=== PATIENT | female | born 1945 | race American Indian/Alaskan Native ===

== ENCOUNTER 2017-08-02 13:13 | Emergency (ER) | payer MEDICARE, MEDICAID ==
--- NOTE | 2017-08-02 12:33 | EDM.PDOC ---
ED HPI GENERAL MEDICAL PROBLEM - General Chief Complaint: General Stated Complaint: IN BY AMBULANCE Time Seen by Provider: 08/02/17 12:30 Source of Information: Reports: Patient, EMS, EMS Notes Reviewed History Limitations: Reports: No Limitations - History of Present Illness INITIAL COMMENTS - FREE TEXT/NARRATIVE: 71 yo [place] Female was at [employer] and developed trouble breathing from cig. smoke. Also, patient states she did not take her insulin because she was hurring to catch bus for [employer]. PMHx. COPD stopped smoking 2 yrs ago and PMHx. Diabetes requiring insulin. Onset: Today Onset Date: 08/02/17 Onset Time: 10:00 Duration: Hour(s):, Improving Location: Reports: Chest, Other (elevated BS) Severity: Moderate Improves with: Reports: Other (getting out of smoke environment) Worsens with: Reports: Other (smoke environment) Associated Symptoms: Reports: No Other Symptoms - Related Data Allergies Allergy/AdvReac Type Severity Reaction Status Date / Time glyburide Allergy Shortness Verified 08/02/17 12:39 of Breath insulin aspart Allergy Itching Verified 08/02/17 13:32 [From Novolog Mix 70-30] insulin aspart protamine Allergy Itching Verified 08/02/17 13:32 human [From Novolog Mix 70-30] nystatin Allergy Rash Verified 08/02/17 12:39 tramadol Allergy Shortness Verified 08/02/17 12:39 of Breath Home Meds: Home Meds Acetaminophen with Codeine [Tylenol with Codeine #3 Tablet] 1 tab PO Q4H [History] Albuterol [Proventil Neb Soln] 1 vial INH Q4H PRN 09/05/15 [History] Aspirin [Halfprin] 1 tab PO DAILY 09/05/15 [History] Budesonide [Pulmicort] 1 vial INH BID 09/05/15 [History] Formoterol [Perforomist] 1 vial INH BID 09/05/15 [History] Gabapentin [Neurontin] 1 cap PO BEDTIME 09/05/15 [History] Insulin Detemir [Levemir] 60 units INJECT BEDTIME 09/05/15 [History] Insulin Regular, Human [HumuLIN R] 10 units INJECT Q8HR PRN 09/05/15 [History] Naproxen [Naprosyn] 1 tab PO BIDMEALS 09/05/15 [History] Omeprazole [Prilosec] 1 cap PO BID 09/05/15 [History] Polyvinyl Alcohol [Artificial Tears] 1 drop EYEBOTH QID 09/05/15 [History] Pregabalin [Lyrica] 1 cap PO DAILY 09/05/15 [History] Simvastatin [Zocor] 1 tab PO BEDTIME 09/05/15 [History] Tiotropium [Spiriva HandiHaler] 1 cap INH DAILY 09/05/15 [History] amLODIPine [Norvasc] 1 tab PO DAILY 09/05/15 [History] metFORMIN [Glucophage] 1 tab PO BIDMEALS 09/05/15 [History] Past Medical History Other Cardiovascular History: PERIPHERAL EDEMA Other Gastrointestinal History: PERSISTENT HEARTBURN Other OB/BYN History: YEAST INFECTIONS Other Immunologic History: MIGUEL POSITIVE ; PT STATES SHE COULD HAVE BEEN EXPOSED TO HIV OR AIDS WHEN SHE LIVED IN [place] IN THE PAST - TESTED NEGATIVE FOR HIV Other Dermatologic History: SMALL RED RAISED AREA ON LEFT PALM SIZE OF QUARTER - SAYS IT WAS OPEN, BUT NOW IS CLOSED; PT STATES SHE HAS "DIABETIC SORES" ON HER LOWER EXTREMETIES AND BACK - NONE ARE OPEN AT THIS TIME - Past Surgical History Other HEENT Surgeries/Procedures: BILAT CATARACT EXTRACTION Social & Family History - Tobacco Use Smoking Status *Q: Former Smoker Years of Tobacco use: 20 Month Tobacco Last Used: 01/10/2015 Second Hand Smoke Exposure: Yes - Alcohol Use Days Per Week of Alcohol Use: 0 - Recreational Drug Use Recreational Drug Use: No Drug Use in Last 12 Months: No - Living Situation & Occupation Occupation: Retired ED ROS GENERAL - Review of Systems Review Of Systems: See Below Constitutional: Reports: No Symptoms HEENT: Reports: No Symptoms Respiratory: Reports: Shortness of Breath Cardiovascular: Reports: No Symptoms Endocrine: Reports: High Glucose (525 by EMS) GI/Abdominal: Reports: No Symptoms : Reports: No Symptoms Musculoskeletal: Reports: No Symptoms Skin: Reports: No Symptoms Neurological: Reports: No Symptoms Psychiatric: Reports: No Symptoms Hematologic/Lymphatic: Reports: No Symptoms Immunologic: Reports: No Symptoms ED EXAM, GENERAL - Physical Exam Exam: See Below Exam Limited By: No Limitations General Appearance: Alert, No Apparent Distress, Obese Eye Exam: Bilateral Eye: PERRL Ears: Normal External Exam Nose: Normal Inspection Throat/Mouth: Normal Inspection, Normal Lips Head: Atraumatic, Normocephalic Neck: Normal Inspection Respiratory/Chest: No Respiratory Distress, Lungs Clear, Normal Breath Sounds, No Accessory Muscle Use, Chest Non-Tender Cardiovascular: Normal Peripheral Pulses, Regular Rate, Rhythm, No Edema Peripheral Pulses: 2+: Radial (L), Radial (R) GI/Abdominal: Normal Bowel Sounds, Soft Back Exam: Normal Inspection Extremities: Normal Inspection, Normal Range of Motion, Non-Tender Neurological: Alert, Oriented, CN II-XII Intact, Normal Cognition Psychiatric: Normal Affect, Normal Mood Skin Exam: Warm, Dry, Intact, Normal Color Lymphatic: No Adenopathy Course - Vital Signs Last Recorded V/S: Last Vital Signs Temp 35.9 C 08/02/17 16:07 Pulse 88 08/02/17 16:07 Resp 14 08/02/17 16:07 BP 138/62 08/02/17 16:07 Pulse Ox 93 L 08/02/17 16:07 - Orders/Labs/Meds Orders: Active Orders 24 hr Category Date Time Status OSMOLALITY - URINE Stat Lab 08/02/17 12:49 Received Labs: Laboratory Tests 08/02/17 08/02/17 08/02/17 Range/Units 12:44 12:44 12:49 WBC 10.6 H (5.0-10.0) 10^3/uL RBC 4.58 (4.2-5.4) 10^6/uL Hgb 12.0 D (12.0-16.0) g/dL Hct 37.0 (37.0-47.0) % MCV 80.8 D (80-100) fL MCH 26.2 L (27.0-34.0) pg MCHC 32.4 L (33.0-35.0) g/dL Plt Count 216 (150-450) 10^3/uL Neut % (Auto) 76.4 H (42.2-75.2) % Lymph % (Auto) 17.0 L (20.5-50.1) % [place] % (Auto) 4.2 (2-8) % Eos % (Auto) 2.1 (1.0-3.0) % Baso % (Auto) 0.3 (0.0-1.0) % Sodium 129 L (135-145) mmol/L Potassium 4.2 (3.6-5.0) mmol/L Chloride 96 L (101-111) mmol/L Carbon Dioxide 22.0 (21.0-31.0) mmol/L Anion Gap 15.2 BUN 20 H (7-18) mg/dL Creatinine 1.1 (0.6-1.3) mg/dL Est Cr Clr Drug Dosing 38.18 mL/min Estimated GFR (MDRD) 49 BUN/Creatinine Ratio 18.18 Glucose 573 H* (74-105) mg/dL POC Glucose (70-105) mg/dl Calcium 8.3 L (8.4-10.2) mg/dl Total Bilirubin 0.4 (0.2-1.0) mg/dL AST 16 (10-42) IU/L ALT 11 (10-60) IU/L Alkaline Phosphatase 113 (42-121) IU/L Total Protein 7.3 (6.7-8.2) g/dl Albumin 3.1 L (3.2-5.5) g/dl Globulin 4.2 Albumin/Globulin Ratio 0.74 Urine Color Yellow (YELLOW) Urine Appearance Slightly cloudy (CLEAR) Urine pH 5.5 (5.0-9.0) Ur Specific [place] 1.010 (1.005-1.030) Urine Protein 100 H (NEGATIVE) Urine Glucose (UA) 500 H (NEGATIVE) Urine Ketones Negative (NEGATIVE) Urine Occult Blood Trace-lysed H (NEGATIVE) Urine Nitrite Negative (NEGATIVE) Urine Bilirubin Negative (NEGATIVE) Urine Urobilinogen 0.2 (0.2-1.0) mg/dL Ur Leukocyte Esterase Negative (NEGATIVE) Urine RBC 0-5 /HPF Urine WBC 0-5 (0-5/HPF) /HPF Ur Epithelial Cells Moderate H /HPF Urine Bacteria Moderate H (0-FEW/HPF) /HPF 08/02/17 08/02/17 Range/Units 14:51 15:57 WBC (5.0-10.0) 10^3/uL RBC (4.2-5.4) 10^6/uL Hgb (12.0-16.0) g/dL Hct (37.0-47.0) % MCV (80-100) fL MCH (27.0-34.0) pg MCHC (33.0-35.0) g/dL Plt Count (150-450) 10^3/uL Neut % (Auto) (42.2-75.2) % Lymph % (Auto) (20.5-50.1) % [place] % (Auto) (2-8) % Eos % (Auto) (1.0-3.0) % Baso % (Auto) (0.0-1.0) % Sodium (135-145) mmol/L Potassium (3.6-5.0) mmol/L Chloride (101-111) mmol/L Carbon Dioxide (21.0-31.0) mmol/L Anion Gap BUN (7-18) mg/dL Creatinine (0.6-1.3) mg/dL Est Cr Clr Drug Dosing mL/min Estimated GFR (MDRD) BUN/Creatinine Ratio Glucose (74-105) mg/dL POC Glucose 382 H 319 H (70-105) mg/dl Calcium (8.4-10.2) mg/dl Total Bilirubin (0.2-1.0) mg/dL AST (10-42) IU/L ALT (10-60) IU/L Alkaline Phosphatase (42-121) IU/L Total Protein (6.7-8.2) g/dl Albumin (3.2-5.5) g/dl Globulin Albumin/Globulin Ratio Urine Color (YELLOW) Urine Appearance (CLEAR) Urine pH (5.0-9.0) Ur Specific [place] (1.005-1.030) Urine Protein (NEGATIVE) Urine Glucose (UA) (NEGATIVE) Urine Ketones (NEGATIVE) Urine Occult Blood (NEGATIVE) Urine Nitrite (NEGATIVE) Urine Bilirubin (NEGATIVE) Urine Urobilinogen (0.2-1.0) mg/dL Ur Leukocyte Esterase (NEGATIVE) Urine RBC /HPF Urine WBC (0-5/HPF) /HPF Ur Epithelial Cells /HPF Urine Bacteria (0-FEW/HPF) /HPF Meds: Medications Discontinued Medications Generic Name Dose Route Start Last Admin Trade Name Freq PRN Reason Stop Dose Admin Sodium Chloride 1,000 mls @ 999 mls/hr 08/02/17 12:32 08/02/17 13:03 Normal Saline IV 08/02/17 13:32 999 mls/hr .BOLUS ONE Administration Sodium Chloride 1,000 mls @ 999 mls/hr 08/02/17 14:59 08/02/17 15:06 Normal Saline IV 08/02/17 15:59 999 mls/hr .BOLUS ONE Administration Insulin Human Regular 10 unit 08/02/17 13:23 08/02/17 13:44 Humulin R IV 08/02/17 13:24 10 units ONETIME ONE Administration Protocol Insulin Human Regular 7 unit 08/02/17 15:58 08/02/17 16:01 Humulin R IV 08/02/17 15:59 7 unit ONETIME ONE Administration Protocol Departure - Departure Time of Disposition: 16:26 Disposition: Home, Self-Care 01 Condition: Good Clinical Impression: Acute bronchospasm Hyperglycemia due to type 2 diabetes mellitus Qualifiers: Diabetes mellitus rat exterminator insulin use: with skilled nursing use Qualified Code(s): E11.65 - Type 2 diabetes mellitus with hyperglycemia; Z79.4 - retirement (current ) use of insulin; Z79.4 - superintendent terminal (current) use of insulin; Z79.4 - retirement (current) use of insulin; Z79.4 - superintendent terminal (current) use of insulin - Discharge Information Forms: ED Department Discharge Additional Instructions: Take your Medication as prescribed by your Doctor Follow dietary instructions per your Doctor Stay Away from Cigarette Smoke F/U w/ PCP - My Orders Last 24 Hours: My Active Orders 08/02/17 12:49 OSMOLALITY - URINE Stat - Assessment/Plan Last 24 Hours: My Active Orders 08/02/17 12:49 OSMOLALITY - URINE Stat
--- NOTE | 2017-08-02 13:08 | CR ---
CLINICAL HISTORY: 71-year-old female with shortness of breath (past medical history COPD). INTERPRETATION: Chronic shaggy interstitial pattern and some old lower lobe atelectasis or bronchiect asis right base unchanged since 12 January 2015 exam this patient with generalized mild air trapping. Senescent ectasia of the dorsal aorta. No atelectasis/collapse. No pneumothorax. Normal cardiac silhouette without cephalization of flow, signs of alveolar edema or dependent pleural effusion. CONCLUSION: Abnormal but no acute new cardiopulmonary abnormality when compared to January 2015 exam.
[~2017-08-02 13:13] MED LIST: Sodium Chloride 0.9% 1,000 ML IV ONE
[2017-08-02] MEDS ORDERED: Insulin Regular, Human 100 Units/ML 3 ML Vial IV ONE ×2 (13:23→15:58)
[2017-08-02] MEDS ORDERED: Sodium Chloride 0.9% 1,000 ML IV ONE (14:59)
[2017-08-02 16:08] VITALS: BP 138/62
== END 2017-08-02 16:46 | disposition home or self-care (01) ==
LOC: DL.ED 13:13
DX: J98.01 Acute bronchospasm (principal); E11.65 Type 2 diabetes mellitus with hyperglycemia; Z79.4 Long term (current) use of insulin; Z87.891 Personal history of nicotine dependence; Z79.899 Other long term (current) drug therapy; Z88.5 Allergy status to narcotic agent; Z88.8 Allergy status to other drugs, medicaments and biological substances; Z79.82 Long term (current) use of aspirin
CPT/HCPCS: 36415; 71020; 80053; 81001; 82962; 83935; 85025; 96361; 96374; 96376; 99285; J1815; J7030

== ENCOUNTER 2018-01-19 15:56 | Emergency (ER) | payer MEDICARE, MEDICAID ==
[2018-01-19] MEDS ORDERED: Sodium Chloride 0.9% 10 ML Syringe FLUSH PRN (16:08)
[2018-01-19 17:02] LABS: ANION GAP 16.2
[2018-01-19] MEDS ORDERED: Insulin Regular, Human 100 Units/ML 3 ML Vial IV ONE (17:09)
--- NOTE | 2018-01-19 17:39 | EDM.PDOC ---
ED HPI GENERAL MEDICAL PROBLEM - General Chief Complaint: Neuro Symptoms/Deficits Stated Complaint: TIA STROKE Time Seen by Provider: 01/19/18 16:15 Source of Information: Reports: Patient, EMS, EMS Notes Reviewed, Family, RN, RN Notes Reviewed History Limitations: Reports: No Limitations - History of Present Illness INITIAL COMMENTS - FREE TEXT/NARRATIVE: Pt presents to the ER per [facility] with c/o numbness and tingling to the left side of her face, left arm, and left leg. She states the areas feel as if they are asleep. Pt states yesterday morning she had facial drooping and was unable to hold her saliva in her mouth. Pt states that resolved this morning, and she began with the numbness and tingling. Daughter states that there has not been any slurring of speech, but the patient has used words inappropriately. Patient admits to DMII, and recently being started on meds for HTN. Patient denies any further health problems at this time. Onset: Gradual Onset Date: 01/18/18 - Related Data Allergies Allergy/AdvReac Type Severity Reaction Status Date / Time glyburide Allergy Shortness Verified 08/02/17 12:39 of Breath insulin aspart Allergy Itching Verified 01/19/18 17:54 [From Novolog Mix 70-30] insulin aspart protamine Allergy Itching Verified 01/19/18 17:54 human [From Novolog Mix 70-30] nystatin Allergy Rash Verified 08/02/17 12:39 tramadol Allergy Shortness Verified 08/02/17 12:39 of Breath Home Meds: Home Meds Acetaminophen with Codeine [Tylenol with Codeine #3 Tablet] 1 tab PO Q4H PRN 12/16 [History] Albuterol [Proventil Neb Soln] 1 vial INH Q4H PRN 09/05/15 [History] Aspirin [Halfprin] 1 tab PO DAILY 09/05/15 [History] Polyvinyl Alcohol [Artificial Tears] 1 drop EYEBOTH QID PRN 09/05/15 [History] Pregabalin [Lyrica] 150 mg PO DAILY 09/05/15 [History] metFORMIN [Glucophage] 1 tab PO BIDMEALS 09/05/15 [History] Albuterol [Proair HFA] 2 puff INH Q4H PRN 01/19/18 [History] Famotidine 1 tab PO DAILY 01/19/18 [History] Insulin Aspart [NovoLOG] 55 units SQ TID 01/19/18 [History] Insulin Detemir [Levemir Flextouch] 80 units SQ BID 01/19/18 [History] Loratadine 1 tab PO DAILY 01/19/18 [History] Losartan [Cozaar] 1 tab PO DAILY 01/19/18 [History] Saxagliptin HCl [Onglyza] 1 tab PO DAILY 01/19/18 [History] atorvaSTATin [Lipitor] 1 tab PO BEDTIME 01/19/18 [History] Past Medical History HEENT History: Reports: Impaired Vision Cardiovascular History: Reports: High Cholesterol, Hypertension, Other (See Below) Other Cardiovascular History: PERIPHERAL EDEMA Respiratory History: Reports: COPD Gastrointestinal History: Reports: Other (See Below) Other Gastrointestinal History: PERSISTENT HEARTBURN Genitourinary History: Reports: Diabetic Nephropathy CLINICAL SUPPORT ASSOCIATE History: Reports: Other (See Below) Other OB/BYN History: YEAST INFECTIONS Neurological History: Reports: Neuropathy, Diabetic Endocrine/Metabolic History: Reports: Diabetes, Type II Immunologic History: Reports: Other (See Below) Other Immunologic History: MIGUEL POSITIVE ; PT STATES SHE COULD HAVE BEEN EXPOSED TO HIV OR AIDS WHEN SHE LIVED IN [place] IN THE PAST - TESTED NEGATIVE FOR HIV Dermatologic History: Reports: Other (See Below) Other Dermatologic History: SMALL RED RAISED AREA ON LEFT PALM SIZE OF QUARTER - SAYS IT WAS OPEN, BUT NOW IS CLOSED; PT STATES SHE HAS "DIABETIC SORES" ON HER LOWER EXTREMETIES AND BACK - NONE ARE OPEN AT THIS TIME - Past Surgical History HEENT Surgical History: Reports: Other (See Below) Other HEENT Surgeries/Procedures: BILAT CATARACT EXTRACTION Female Surgical History: Reports: Section Musculoskeletal Surgical History: Reports: Other (See Below) Other Musculoskeletal Surgeries/Procedures:: both great toes have been amputated Social & Family History - Tobacco Use Smoking Status *Q: Former Smoker Years of Tobacco use: 20 Used Tobacco, but Quit: Yes Month/Year Tobacco Last Used: 01/10/2015 Second Hand Smoke Exposure: Yes - Caffeine Use Caffeine Use: Reports: Coffee, Soda - Alcohol Use Days Per Week of Alcohol Use: 0 - Recreational Drug Use Recreational Drug Use: No Drug Use in Last 12 Months: No - Living Situation & Occupation Occupation: Retired ED ROS GENERAL - Review of Systems Review Of Systems: ROS reveals no pertinent complaints other than HPI. ED EXAM, NEURO - Physical Exam Exam: See Below Exam Limited By: No Limitations General Appearance: Alert, WD/WN, No Apparent Distress Eye Exam: Bilateral Eye: EOMI, Normal Inspection, PERRL (4 brisk) Ears: Normal External Exam, Hearing Grossly Normal Nose: Normal Inspection Throat/Mouth: Normal Inspection, Normal Voice, No Airway Compromise Head Exam: Atraumatic, Normocephalic Neck: Normal Inspection, Supple, Non-Tender, Full Range of Motion Respiratory/Chest: No Respiratory Distress, Lungs Clear, Normal Breath Sounds, No Accessory Muscle Use, Chest Non-Tender Cardiovascular: Normal Peripheral Pulses, Regular Rate, Rhythm, No Gallop, No JVD, No Murmur, No Rub GI/Abdominal: Normal Bowel Sounds, Soft, Non-Tender, No Organomegaly, No Distention, No Abnormal Bruit, No Mass (Female) Exam: Deferred Rectal (Female) Exam: Deferred Neurological: Alert, Normal Mood/Affect, Normal Dorsiflexion, Normal Plantar Flexion, Oriented x 3, Abnormal Sensation, Difficulty Walking. No: Withdraws to Pain, Abnormal Finger to Nose, Abnormal Light Touch, Abnormal Pin Prick, Abn 2 Pt Discrimination, Babinski, Tremor, Straight Leg Raise (L), Straight Leg Raise (R) Back Exam: Normal Inspection, Full Range of Motion Extremities: Normal Inspection, Normal Capillary Refill, Pedal Edema (+1-2) Psychiatric: Normal Affect, Normal Mood Skin Exam: Warm, Dry, Intact, Normal Color, No Rash EKG INTERPRETATION EKG Date: 01/19/18 Time: 16:08 Rhythm: NSR Rate (Beats/Min): 93 Comparison: No Change Course - Vital Signs Last Recorded V/S: Last Vital Signs Temp 97.9 F 01/19/18 15:57 Pulse 103 H 01/19/18 15:57 Resp 22 H 01/19/18 15:57 BP Pulse Ox 90 L 01/19/18 15:57 - Orders/Labs/Meds Orders: Active Orders 24 hr Category Date Time Status Peripheral IV Care [RC] . DIRECTED Care 01/19/18 16:08 Active UA W/MICROSCOPIC [URIN] Stat Lab 01/19/18 16:45 Ordered Sodium Chloride 0.9% [Saline Flush] Med 01/19/18 16:08 Active 10 ml FLUSH ASDIRECTED PRN Peripheral IV Insertion Adult [OM.PC] Stat Oth 01/19/18 16:08 Ordered Medication Orders Sodium Chloride (Saline Flush) 10 ml FLUSH ASDIRECTED PRN PRN Reason: Keep Vein Open Last Admin: 01/19/18 17:00 Dose: 10 ml Labs: Laboratory Tests 01/19/18 01/19/18 01/19/18 Range/Units 16:18 16:18 16:18 WBC 8.2 (5.0-10.0) 10^3/uL RBC 4.70 (4.2-5.4) 10^6/uL Hgb 12.5 (12.0-16.0) g/dL Hct 38.4 (37.0-47.0) % MCV 81.7 (80-100) fL MCH 26.6 L (27.0-34.0) pg MCHC 32.6 L (33.0-35.0) g/dL Plt Count 191 (150-450) 10^3/uL Neut % (Auto) 73.4 (42.2-75.2) % Lymph % (Auto) 17.5 L (20.5-50.1) % [place] % (Auto) 6.5 (2-8) % Eos % (Auto) 2.4 (1.0-3.0) % Baso % (Auto) 0.2 (0.0-1.0) % PT 8.8 L (9.0-12.0) SEC INR 0.9 (0.9-1.2) Sodium 128 L (135-145) mmol/L Potassium 5.2 H (3.6-5.0) mmol/L Chloride 96 L (101-111) mmol/L Carbon Dioxide 21.0 (21.0-31.0) mmol/L Anion Gap 16.2 BUN 33 H (7-18) mg/dL Creatinine 1.8 H (0.6-1.3) mg/dL Est Cr Clr Drug Dosing 24.06 mL/min Estimated GFR (MDRD) 28 BUN/Creatinine Ratio 18.33 Glucose 521 H* (74-105) mg/dL Calcium 8.2 L (8.4-10.2) mg/dl Total Bilirubin 0.4 (0.2-1.0) mg/dL AST 30 (10-42) IU/L ALT 19 (10-60) IU/L Alkaline Phosphatase 87 (42-121) IU/L Total Protein 6.6 L (6.7-8.2) g/dl Albumin 2.9 L (3.2-5.5) g/dl Globulin 3.7 Albumin/Globulin Ratio 0.78 Urine Color (YELLOW) Urine Appearance (CLEAR) Urine pH (5.0-9.0) Ur Specific [place] (1.005-1.030) Urine Protein (NEGATIVE) Urine Glucose (UA) (NEGATIVE) Urine Ketones (NEGATIVE) Urine Occult Blood (NEGATIVE) Urine Nitrite (NEGATIVE) Urine Bilirubin (NEGATIVE) Urine Urobilinogen (0.2-1.0) mg/dL Ur Leukocyte Esterase (NEGATIVE) Urine RBC /HPF Urine WBC (0-5/HPF) /HPF Ur Epithelial Cells /HPF Calcium Oxalate Crystal /HPF Amorphous Sediment (0/HPF) /HPF Urine Bacteria (0-FEW/HPF) /HPF Fine Granular Casts (0/LPF) /LPF 01/19/18 Range/Units 16:45 WBC (5.0-10.0) 10^3/uL RBC (4.2-5.4) 10^6/uL Hgb (12.0-16.0) g/dL Hct (37.0-47.0) % MCV (80-100) fL MCH (27.0-34.0) pg MCHC (33.0-35.0) g/dL Plt Count (150-450) 10^3/uL Neut % (Auto) (42.2-75.2) % Lymph % (Auto) (20.5-50.1) % [place] % (Auto) (2-8) % Eos % (Auto) (1.0-3.0) % Baso % (Auto) (0.0-1.0) % PT (9.0-12.0) SEC INR (0.9-1.2) Sodium (135-145) mmol/L Potassium (3.6-5.0) mmol/L Chloride (101-111) mmol/L Carbon Dioxide (21.0-31.0) mmol/L Anion Gap BUN (7-18) mg/dL Creatinine (0.6-1.3) mg/dL Est Cr Clr Drug Dosing mL/min Estimated GFR (MDRD) BUN/Creatinine Ratio Glucose (74-105) mg/dL Calcium (8.4-10.2) mg/dl Total Bilirubin (0.2-1.0) mg/dL AST (10-42) IU/L ALT (10-60) IU/L Alkaline Phosphatase (42-121) IU/L Total Protein (6.7-8.2) g/dl Albumin (3.2-5.5) g/dl Globulin Albumin/Globulin Ratio Urine Color Yellow (YELLOW) Urine Appearance Slightly cloudy (CLEAR) Urine pH 5.5 (5.0-9.0) Ur Specific [place] 1.020 (1.005-1.030) Urine Protein >=300 H (NEGATIVE) Urine Glucose (UA) 500 H (NEGATIVE) Urine Ketones Negative (NEGATIVE) Urine Occult Blood Trace-lysed H (NEGATIVE) Urine Nitrite Negative (NEGATIVE) Urine Bilirubin Negative (NEGATIVE) Urine Urobilinogen 0.2 (0.2-1.0) mg/dL Ur Leukocyte Esterase Negative (NEGATIVE) Urine RBC 0-5 /HPF Urine WBC 0-5 (0-5/HPF) /HPF Ur Epithelial Cells Few /HPF Calcium Oxalate Crystal Rare /HPF Amorphous Sediment Rare (0/HPF) /HPF Urine Bacteria Moderate H (0-FEW/HPF) /HPF Fine Granular Casts Rare H (0/LPF) /LPF Meds: Medications Generic Name Dose Route Start Last Admin Trade Name Freq PRN Reason Stop Dose Admin Sodium Chloride 10 ml 01/19/18 16:08 01/19/18 17:00 Saline Flush FLUSH 10 ml ASDIRECTED PRN Administration Keep Vein Open Discontinued Medications Generic Name Dose Route Start Last Admin Trade Name Freq PRN Reason Stop Dose Admin Famotidine 20 mg 01/19/18 17:56 01/19/18 18:11 Pepcid PO 01/19/18 17:57 20 mg ONETIME ONE Administration Insulin Human Regular 30 unit 01/19/18 17:09 01/19/18 17:24 Humulin R IV 01/19/18 17:10 30 units ONETIME ONE Administration Ondansetron HCl 4 mg 01/19/18 17:56 01/19/18 18:09 Zofran Odt PO 01/19/18 17:57 4 mg ONETIME ONE Administration - Radiology Interpretation Free Text/Narrative:: Head CT without contrast: THIS REPORT CONTAINS FINDINGS THAT MAY BE CRITICAL TO PATIENT CARE. The findings were verbally communicated via telephone conference with May Rodriguez at 4: 40 PM CDT on 01/19/2018. The findings were acknowledged and understood. IMPRESSION: Mild low attenuation and loss of reis-white matter differentiation within the left occipital lobe, suspicious for acute infarction. No evidence of acute intracranial hemorrhage. Thank you for allowing us to participate in the care of your patient. Dictated and Authenticated by: Mynor Fitzgerald MD 01/19/2018 4:41 PM Central Time ([place] & [place]) See rad report Departure - Departure Time of Disposition: 18:41 Disposition: DC/Tfer to Acute Hospital 02 Condition: Fair Clinical Impression: Stroke Qualifiers: CVA mechanism: occlusion Precerebral and cerebral artery: posterior cerebral artery Laterality of affected vessel: left Qualified Code(s): I63.532 - Cerebral infarction due to unspecified occlusion or stenosis of left posterior cerebral artery - Discharge Information Forms: ED Department Discharge, Interfacility Transfer EMTALA - My Orders Last 24 Hours: My Active Orders 01/19/18 16:08 Peripheral IV Care [RC] . DIRECTED Sodium Chloride 0.9% [Saline Flush] 10 ml FLUSH ASDIRECTED PRN Peripheral IV Insertion Adult [OM.PC] Stat 01/19/18 16:45 UA W/MICROSCOPIC [URIN] Stat - Assessment/Plan Last 24 Hours: My Active Orders 01/19/18 16:08 Peripheral IV Care [RC] . DIRECTED Sodium Chloride 0.9% [Saline Flush] 10 ml FLUSH ASDIRECTED PRN Peripheral IV Insertion Adult [OM.PC] Stat 01/19/18 16:45 UA W/MICROSCOPIC [URIN] Stat
[2018-01-19] MEDS ORDERED: Ondansetron 4 MG Tab.DIS PO ONE (17:56)
[2018-01-19] MEDS ORDERED: Famotidine 20 MG Tab PO ONE (17:56)
== END 2018-01-19 19:03 ==
LOC: DL.ED 15:56
DX: I63.532 Cerebral infarction due to unspecified occlusion or stenosis of left posterior cerebral artery (principal); I10 Essential (primary) hypertension; E78.00 Pure hypercholesterolemia, unspecified; E11.40 Type 2 diabetes mellitus with diabetic neuropathy, unspecified; Z87.891 Personal history of nicotine dependence; Z79.82 Long term (current) use of aspirin; Z79.84 Long term (current) use of oral hypoglycemic drugs; Z88.5 Allergy status to narcotic agent; Z88.8 Allergy status to other drugs, medicaments and biological substances
CPT/HCPCS: 36415; 70450; 80053; 81001; 82962; 85025; 85610; 96374; 99285; A9270; J1815; J7050

== ENCOUNTER 2018-02-13 17:03 | Emergency (ER) | payer MEDICARE, MEDICAID ==
[2018-02-13 17:46] VITALS: BP 111/75
--- NOTE | 2018-02-13 19:11 | EDM.PDOC ---
ED HPI GENERAL MEDICAL PROBLEM - General Chief Complaint: Neurological Problem Stated Complaint: [id number] STROKE CONCERN Time Seen by Provider: 02/13/18 18:48 Source of Information: Reports: Patient History Limitations: Reports: No Limitations - History of Present Illness INITIAL COMMENTS - FREE TEXT/NARRATIVE: This 72 yo female patient reports to the ED with her daughter due to blurred vision and difficulties ambulating. The patient reports that she got home from [employer] this afternoon, took a nap and when she woke up she had some blurred vision and upper leg weakness leading to difficulties walking. The patient reports that she noticed her symptoms at about 1500 today. Since that time, the patient reports her symptoms have gotten much better. The patient reports that she had a "mini stroke" about 1 month ago. After being evaluated here, the patient was transferred to [facility] for further evaluation. The patient's daughter reports that she was in [facility] for about 1 week, then discharged. Onset: Today Onset Date: 02/15/18 Duration: Improving Location: Reports: Generalized Quality: Reports: Other Severity: Moderate Improves with: Reports: Rest Worsens with: Reports: None Associated Symptoms: Reports: Other Generalized Pain Score (Numeric/FACES): 8 - Related Data Allergies Allergy/AdvReac Type Severity Reaction Status Date / Time glyburide Allergy Shortness Verified 08/02/17 12:39 of Breath insulin aspart Allergy Itching Verified 01/19/18 17:54 [From Novolog Mix 70-30] insulin aspart protamine Allergy Itching Verified 01/19/18 17:54 human [From Novolog Mix 70-30] nystatin Allergy Rash Verified 08/02/17 12:39 tramadol Allergy Shortness Verified 08/02/17 12:39 of Breath Home Meds: Home Meds Acetaminophen with Codeine [Tylenol with Codeine #3 Tablet] 1 tab PO Q4H PRN 12/16 [History] Albuterol [Proventil Neb Soln] 1 vial INH Q4H PRN 09/05/15 [History] Aspirin [Halfprin] 1 tab PO DAILY 09/05/15 [History] Polyvinyl Alcohol [Artificial Tears] 1 drop EYEBOTH QID PRN 09/05/15 [History] Pregabalin [Lyrica] 150 mg PO DAILY 09/05/15 [History] metFORMIN [Glucophage] 1 tab PO BIDMEALS 09/05/15 [History] Albuterol [Proair HFA] 2 puff INH Q4H PRN 01/19/18 [History] Famotidine 1 tab PO DAILY 01/19/18 [History] Insulin Aspart [NovoLOG] 55 units SQ TID 01/19/18 [History] Insulin Detemir [Levemir Flextouch] 80 units SQ BID 01/19/18 [History] Loratadine 1 tab PO DAILY 01/19/18 [History] Losartan [Cozaar] 1 tab PO DAILY 01/19/18 [History] Saxagliptin HCl [Onglyza] 1 tab PO DAILY 01/19/18 [History] atorvaSTATin [Lipitor] 1 tab PO BEDTIME 01/19/18 [History] Past Medical History HEENT History: Reports: Impaired Vision Cardiovascular History: Reports: High Cholesterol, Hypertension Other Cardiovascular History: PERIPHERAL EDEMA Respiratory History: Reports: COPD Other Gastrointestinal History: PERSISTENT HEARTBURN Other OB/BYN History: YEAST INFECTIONS Endocrine/Metabolic History: Reports: Diabetes, Type II Other Immunologic History: MIGUEL POSITIVE ; PT STATES SHE COULD HAVE BEEN EXPOSED TO HIV OR AIDS WHEN SHE LIVED IN [place] IN THE PAST - TESTED NEGATIVE FOR HIV Other Dermatologic History: SMALL RED RAISED AREA ON LEFT PALM SIZE OF QUARTER - SAYS IT WAS OPEN, BUT NOW IS CLOSED; PT STATES SHE HAS "DIABETIC SORES" ON HER LOWER EXTREMETIES AND BACK - NONE ARE OPEN AT THIS TIME - Past Surgical History Other HEENT Surgeries/Procedures: BILAT CATARACT EXTRACTION Female Surgical History: Reports: Section Musculoskeletal Surgical History: Reports: Other (See Below) Other Musculoskeletal Surgeries/Procedures:: both great toes have been amputated Social & Family History - Tobacco Use Smoking Status *Q: Never Smoker - Caffeine Use Caffeine Use: Reports: Coffee, Soda, Tea - Recreational Drug Use Recreational Drug Use: No - Living Situation & Occupation Occupation: Retired ED ROS GENERAL - Review of Systems Review Of Systems: ROS reveals no pertinent complaints other than HPI. ED EXAM, NEURO - Physical Exam Exam: See Below Exam Limited By: No Limitations General Appearance: Alert, WD/WN, Mild Distress, Obese Eye Exam: Bilateral Eye: EOMI, Normal Inspection, PERRL Ears: Normal External Exam, Normal Canal, Hearing Grossly Normal, Normal TMs Nose: Normal Inspection, Normal Mucosa, No Blood Throat/Mouth: Normal Inspection, Normal Lips, Normal Teeth, Normal Gums, Normal Oropharynx, Normal Voice, No Airway Compromise Head Exam: Atraumatic, Normocephalic Neck: Normal Inspection, Supple, Non-Tender, Full Range of Motion Respiratory/Chest: No Respiratory Distress, Lungs Clear, Normal Breath Sounds, No Accessory Muscle Use, Chest Non-Tender Cardiovascular: Normal Peripheral Pulses, Regular Rate, Rhythm, No Edema, No Gallop, No JVD, No Murmur, No Rub GI/Abdominal: Normal Bowel Sounds, Soft, Non-Tender, No Organomegaly, No Distention, No Abnormal Bruit, No Mass, Other (obese) (Female) Exam: Deferred Rectal (Female) Exam: Deferred Neurological: Alert, Normal Mood/Affect, Normal Dorsiflexion, CN II-XII Intact, No Motor/Sensory Deficits, Oriented x 3 Back Exam: Normal Inspection, Full Range of Motion, NT Extremities: Normal Inspection, Normal Range of Motion, Non-Tender, Normal Capillary Refill, Pedal Edema (2+) Psychiatric: Normal Affect, Normal Mood Skin Exam: Warm, Dry, Intact, Normal Color, No Rash Course - Vital Signs Last Recorded V/S: Last Vital Signs Temp 35.7 C 02/13/18 17:45 Pulse 87 02/13/18 17:45 Resp 16 02/13/18 17:45 BP 111/75 02/13/18 17:45 Pulse Ox 93 L 02/13/18 17:45 - Orders/Labs/Meds Orders: Active Orders 24 hr Category Date Time Status EKG Documentation Completion [RC] URGENT Care 02/13/18 19:02 Active Head wo Cont [CT] Urgent Exams 02/13/18 19:02 Taken Labs: Laboratory Tests 02/13/18 02/13/18 02/13/18 Range/Units 19:10 19:10 19:10 WBC 12.6 H (5.0-10.0) 10^3/uL RBC 4.85 (4.2-5.4) 10^6/uL Hgb 13.1 (12.0-16.0) g/dL Hct 39.6 (37.0-47.0) % MCV 81.6 (80-100) fL MCH 27.0 (27.0-34.0) pg MCHC 33.1 (33.0-35.0) g/dL Plt Count 202 (150-450) 10^3/uL Neut % (Auto) 67.9 (42.2-75.2) % Lymph % (Auto) 22.1 (20.5-50.1) % [place] % (Auto) 8.3 H (2-8) % Eos % (Auto) 1.5 (1.0-3.0) % Baso % (Auto) 0.2 (0.0-1.0) % PT 8.8 L (9.0-12.0) SEC INR 0.9 (0.9-1.2) Sodium 132 L (135-145) mmol/L Potassium 5.2 H (3.6-5.0) mmol/L Chloride 101 (101-111) mmol/L Carbon Dioxide 23.0 (21.0-31.0) mmol/L Anion Gap 13.2 BUN 34 H (7-18) mg/dL Creatinine 2.4 H (0.6-1.3) mg/dL Est Cr Clr Drug Dosing 17.25 mL/min Estimated GFR (MDRD) 20 BUN/Creatinine Ratio 14.16 Glucose 189 H (74-105) mg/dL Calcium 9.2 (8.4-10.2) mg/dl Total Bilirubin 0.4 (0.2-1.0) mg/dL AST 21 (10-42) IU/L ALT 16 (10-60) IU/L Alkaline Phosphatase 93 (42-121) IU/L Troponin I < 0.02 (0.00-0.02) ng/ml B-Natriuretic Peptide 31 (0-100) pg/ml Total Protein 7.1 (6.7-8.2) g/dl Albumin 2.9 L (3.2-5.5) g/dl Globulin 4.2 Albumin/Globulin Ratio 0.69 Departure - Departure Time of Disposition: 20:01 Disposition: Home, Self-Care 01 Condition: Fair Clinical Impression: TIA (transient ischemic attack) Qualifiers: Transient cerebral ischemia type: unspecified Qualified Code(s): G45.9 - Transient cerebral ischemic attack, unspecified Lower extremity neuropathy Qualifiers: Laterality: bilateral Qualified Code(s): G57.93 - Unspecified mononeuropathy of bilateral lower limbs - Discharge Information Instructions: Transient Ischemic Attack, [id number], Peripheral Neuropathy Referrals: Sudeep Marin [Primary Care Provider] - Forms: ED Department Discharge Care Plan Goals: The patient was advised of the examination, lab, EKG, and CT results during the visit. The patient was encouraged to avoid sleeping in the recliner as recliners tend to increase pressure on her lower back causing the neuropathy. The patient was encouraged to continue to monitor for any additional symptoms or concern. If the patient has any additional symptoms or further concerns, the patient should either follow-up with her primary care facility or return to the emergency department. - My Orders Last 24 Hours: My Active Orders 02/13/18 19:02 EKG Documentation Completion [RC] URGENT Head wo Cont [CT] Urgent - Assessment/Plan Last 24 Hours: My Active Orders 02/13/18 19:02 EKG Documentation Completion [RC] URGENT Head wo Cont [CT] Urgent
[2018-02-13 19:36] LABS: CHLORIDE,CL 101 mmol/L (101-111); SODIUM,NA 132 mmol/L (135-145)
--- NOTE | 2018-02-16 07:22 | EKG ---
02/13/2018- MARYJANE SAN - FINDINGS: A 12-lead EKG shows normal sinus rhythm with no significant ST elevation or ST depression noted on this 12-lead EKG. [facility] /[id number]
== END 2018-02-13 20:13 | disposition home or self-care (01) ==
LOC: DL.ED 17:03
DX: G45.9 Transient cerebral ischemic attack, unspecified (principal); E11.41 Type 2 diabetes mellitus with diabetic mononeuropathy; E78.00 Pure hypercholesterolemia, unspecified; I10 Essential (primary) hypertension; Z88.8 Allergy status to other drugs, medicaments and biological substances; Z88.5 Allergy status to narcotic agent; Z79.899 Other long term (current) drug therapy; Z79.4 Long term (current) use of insulin; Z79.82 Long term (current) use of aspirin
CPT/HCPCS: 36415; 70450; 80053; 83880; 84484; 85025; 85610; 93005; 93010; 99284

== ENCOUNTER 2019-07-07 14:55 | Emergency (ER) | payer MEDICARE, MEDICAID ==
[2019-07-07 15:16] VITALS: BP 137/81; PULSE 124
--- NOTE | 2019-07-07 15:20 | EDM.PDOC ---
ED HPI GENERAL MEDICAL PROBLEM - General Chief Complaint: Respiratory Problem Stated Complaint: SOB Time Seen by Provider: 07/07/19 15:19 Source of Information: Reports: Patient, Old Records, RN, RN Notes Reviewed History Limitations: Reports: No Limitations - History of Present Illness INITIAL COMMENTS - FREE TEXT/NARRATIVE: Patient presents to ER with complaint off shortness of breath and chest heaviness. Patient states that she developed a cough one week ago and has been short of breath since that time. She developed chest heaviness sometime later this morning. She denies radiating pain. She denies fever, nausea or vomiting. Denies any prior cardiac disease. Admits to history of COPD and diabetes. Onset: Today Duration: Heavy Location: Reports: Chest Quality: Reports: Ache Severity: Severe Improves with: Reports: None Worsens with: Reports: None Associated Symptoms: Reports: No Other Symptoms Generalized Pain Score (Numeric/FACES): 8 - Related Data Allergies Allergy/AdvReac Type Severity Reaction Status Date / Time glyburide Allergy Shortness Verified 07/07/19 15:18 of Breath insulin aspart Allergy Itching Verified 07/07/19 15:18 [From Novolog Mix 70-30] insulin aspart protamine Allergy Itching Verified 07/07/19 15:18 human [From Novolog Mix 70-30] nystatin Allergy Rash Verified 07/07/19 15:18 tramadol Allergy Shortness Verified 07/07/19 15:18 of Breath Home Meds: Home Meds Acetaminophen with Codeine [Tylenol with Codeine #3 Tablet] 1 tab PO Q4H PRN 12/16 [History] Albuterol [Proventil Neb Soln] 1 vial INH Q4H PRN 09/05/15 [History] Aspirin [Halfprin] 1 tab PO DAILY 09/05/15 [History] Polyvinyl Alcohol [Artificial Tears] 1 drop EYEBOTH QID PRN 09/05/15 [History] Pregabalin [Lyrica] 150 mg PO DAILY 09/05/15 [History] metFORMIN [Glucophage] 1 tab PO BIDMEALS 09/05/15 [History] Albuterol [Proair HFA] 2 puff INH Q4H PRN 01/19/18 [History] Famotidine 1 tab PO DAILY 01/19/18 [History] Insulin Aspart [NovoLOG] 20 units SQ TID 01/19/18 [History] Insulin Detemir [Levemir Flextouch] 45 units SQ BID 01/19/18 [History] Loratadine 1 tab PO DAILY 01/19/18 [History] Losartan [Cozaar] 1 tab PO DAILY 01/19/18 [History] Saxagliptin HCl [Onglyza] 1 tab PO DAILY 01/19/18 [History] atorvaSTATin [Lipitor] 1 tab PO BEDTIME 01/19/18 [History] Past Medical History HEENT History: Reports: Impaired Vision Cardiovascular History: Reports: High Cholesterol, Hypertension Other Cardiovascular History: PERIPHERAL EDEMA Respiratory History: Reports: COPD Gastrointestinal History: Reports: GERD, Other (See Below) Other Gastrointestinal History: PERSISTENT HEARTBURN Genitourinary History: Reports: Dialysis, Diabetic Nephropathy Other Genitourinary History: short term shunt in the neck for dialysis while in the hospital TRENCH TRIMMER FINE History: Reports: Other (See Below) Other TRENCH TRIMMER FINE History: YEAST INFECTIONS Neurological History: Reports: Neuropathy, Diabetic Endocrine/Metabolic History: Reports: Diabetes, Type II Immunologic History: Reports: Other (See Below) Other Immunologic History: MIGUEL POSITIVE ; PT STATES SHE COULD HAVE BEEN EXPOSED TO HIV OR AIDS WHEN SHE LIVED IN [place] IN THE PAST - TESTED NEGATIVE FOR HIV Dermatologic History: Reports: Other (See Below) Other Dermatologic History: SMALL RED RAISED AREA ON LEFT PALM SIZE OF QUARTER - SAYS IT WAS OPEN, BUT NOW IS CLOSED; PT STATES SHE HAS "DIABETIC SORES" ON HER LOWER EXTREMETIES AND BACK - NONE ARE OPEN AT THIS TIME - Past Surgical History HEENT Surgical History: Reports: Cataract Surgery Other HEENT Surgeries/Procedures: BILAT CATARACT EXTRACTION Female Surgical History: Reports: Section Musculoskeletal Surgical History: Reports: Other (See Below) Other Musculoskeletal Surgeries/Procedures:: both great toes have been amputated Social & Family History - Family History Family Medical History: Noncontributory - Caffeine Use Caffeine Use: Reports: Coffee, Soda, Tea - Living Situation & Occupation Occupation: Retired ED ROS GENERAL - Review of Systems Review Of Systems: ROS reveals no pertinent complaints other than HPI. ED EXAM, GENERAL - Physical Exam Exam: See Below Exam Limited By: No Limitations General Appearance: Alert, No Apparent Distress, Anxious, Obese Eye Exam: Bilateral Eye: EOMI, PERRL, Other (healing sutured surgical incisions to B/L upper eyelids) Ears: Normal External Exam, Hearing Grossly Normal Nose: Normal Inspection, Normal Mucosa, No Blood Throat/Mouth: Normal Inspection, Normal Lips, Normal Oropharynx, Normal Voice, No Airway Compromise Head: Atraumatic, Normocephalic Neck: Normal Inspection, Supple, Non-Tender, Full Range of Motion Respiratory/Chest: No Respiratory Distress, Lungs Clear, No Accessory Muscle Use , Chest Non-Tender, Decreased Breath Sounds Cardiovascular: Normal Peripheral Pulses, Regular Rate, Rhythm, Tachycardia GI/Abdominal: Normal Bowel Sounds, Soft, Non-Tender, No Distention Back Exam: Normal Inspection Extremities: Normal Range of Motion, Non-Tender, Normal Capillary Refill Neurological: Alert, Oriented, CN II-XII Intact, Normal Cognition, No Motor/ Sensory Deficits Psychiatric: Anxious Skin Exam: Warm, Dry, Intact, Normal Color, No Rash EKG INTERPRETATION EKG Date: 07/07/19 Time: 15:14 Rhythm: Other (Sinus Tach) Rate (Beats/Min): 102 [place]: Normal P-Wave: Present QRS: Normal ST-T: Elevated (inferior) QT: Normal Comparison: NA - No Prior EKG Course - Vital Signs Last Recorded V/S: Last Vital Signs Temp 97.8 F 07/07/19 15:11 Pulse 124 H 07/07/19 15:11 Resp 26 H 07/07/19 15:11 BP 137/81 07/07/19 15:11 Pulse Ox 82 L 07/07/19 15:11 - Orders/Labs/Meds Orders: Active Orders 24 hr Category Date Time Status EKG 12 Lead [EKG Documentation Completion] [RC] STAT Care 07/07/19 15:25 Hold EKG 12 Lead [EKG Documentation Completion] [RC] STAT Care 07/07/19 15:30 Active Peripheral IV Care [RC] . DIRECTED Care 07/07/19 15:30 Active Chest 1V Frontal [CR] Stat Exams 07/07/19 15:30 Taken B-TYPE NATRIURETIC PEPTIDE,BNP [CHEM] Stat Lab 07/07/19 15:14 Received COMPREHENSIVE METABOLIC PN,CMP [CHEM] Stat Lab 07/07/19 15:14 Received INR,PT,PROTHROMBIN TIME [COAG] Stat Lab 07/07/19 15:14 Received PTT,PARTIAL THROMBOPLSTIN TIME [COAG] Stat Lab 07/07/19 15:14 Received TROPONIN I [CHEM] Stat Lab 07/07/19 15:14 Received Nitroglycerin/D5W [Nitroglycerin 25 MG/D5W 250 ML] Med 07/07/19 15:45 Active 25 mg in 250 ml IV TITRATE Sodium Chloride 0.9% [Saline Flush] Med 07/07/19 15:30 Active 10 ml FLUSH ASDIRECTED PRN Peripheral IV Insertion Adult [OM.PC] Stat Oth 07/07/19 15:30 Ordered Medication Orders Nitroglycerin/Dextrose (Nitroglycerin 25 Mg/D5w 250 Ml) 25 mg in 250 mls @ 3 mls/hr IV TITRATE GREGG; Protocol Sodium Chloride (Saline Flush) 10 ml FLUSH ASDIRECTED PRN PRN Reason: Keep Vein Open Last Admin: 07/07/19 15:39 Dose: 10 ml Labs: Laboratory Tests 07/07/19 Range/Units 15:14 WBC 12.1 H (5.0-10.0) 10^3/uL RBC 3.70 L (4.2-5.4) 10^6/uL Hgb 10.5 L (12.0-16.0) g/dL Hct 33.3 L (37.0-47.0) % MCV 90.0 D (80-100) fL MCH 28.4 (27.0-34.0) pg MCHC 31.5 L (33.0-35.0) g/dL Plt Count 295 (150-450) 10^3/uL Neut % (Auto) 79.9 H (42.2-75.2) % Lymph % (Auto) 12.6 L (20.5-50.1) % [place] % (Auto) 6.2 (2-8) % Eos % (Auto) 1.1 (1.0-3.0) % Baso % (Auto) 0.2 (0.0-1.0) % Meds: Medications Generic Name Dose Route Start Last Admin Trade Name Freq PRN Reason Stop Dose Admin Nitroglycerin/Dextrose 25 mg in 250 mls @ 3 mls/hr 07/07/19 15:45 Nitroglycerin 25 Mg/D5w 250 Ml IV TITRATE GREGG Protocol 5 MCG/MIN Sodium Chloride 10 ml 07/07/19 15:30 07/07/19 15:39 Saline Flush FLUSH 10 ml ASDIRECTED PRN Administration Keep Vein Open Discontinued Medications Generic Name Dose Route Start Last Admin Trade Name Kale PRN Reason Stop Dose Admin Aspirin 324 mg 07/07/19 15:31 07/07/19 15:36 Aspirin PO 07/07/19 15:32 324 mg ONETIME ONE Administration Aspirin Confirm 07/07/19 15:32 07/07/19 15:37 Aspirin Administered 07/07/19 15:33 Not Given Dose 324 mg .ROUTE .STK-MED ONE Clopidogrel Bisulfate 300 mg 07/07/19 15:31 07/07/19 15:37 Plavix PO 07/07/19 15:32 300 mg ONETIME ONE Administration Heparin Sodium (Porcine) 4,000 units 07/07/19 15:31 07/07/19 15:39 Heparin Sodium IVPUSH 07/07/19 15:32 4,000 units .BOLUS ONE Administration Heparin Sodium (Porcine) Confirm 07/07/19 15:33 07/07/19 15:40 Heparin Sodium Administered 07/07/19 15:34 Not Given Dose 5,000 units .ROUTE .STK-MED ONE Heparin Sodium/Sodium Chloride Confirm 07/07/19 15:33 07/07/19 15:41 Heparin 25,000 Units In 1/2 Ns 500 Ml Administered 07/07/19 15:34 Not Given Dose 500 mls @ as directed .ROUTE .STK-MED ONE Nitroglycerin/Dextrose Confirm 07/07/19 15:34 07/07/19 15:41 Nitroglycerin 25 Mg/D5w 250 Ml Administered 07/07/19 15:35 Not Given Dose 25 mg in 250 mls @ as directed .ROUTE .STK-MED ONE - Radiology Interpretation Free Text/Narrative:: CXR: subtle c/v decompensation per Rad. report. - Re-Assessments/Exams Free Text/Narrative Re-Assessment/Exam: 07/07/19 15:[address] Mahajan via [facility]. He concurs with the current tx and advises to air transfer the pt to [facility] without thrombolytics as she can be airlifted immediately with a 30 [address]. flight time. Departure - Departure Time of Disposition: 15:39 Disposition: DC/Tfer to Acute Hospital 02 Condition: Critical Clinical Impression: STEMI (ST elevation myocardial infarction) Qualifiers: Involved coronary artery: other inferior wall coronary artery Qualified Code(s) : I21.19 - ST elevation (STEMI) myocardial infarction involving other coronary artery of inferior wall - Discharge Information *PRESCRIPTION DRUG MONITORING PROGRAM REVIEWED*: Not Applicable *COPY OF PRESCRIPTION DRUG MONITORING REPORT IN PATIENT CLINT: Not Applicable Forms: ED Department Discharge, Interfacility Transfer EMTALA - My Orders Last 24 Hours: My Active Orders 07/07/19 15:14 B-TYPE NATRIURETIC PEPTIDE,BNP [CHEM] Stat COMPREHENSIVE METABOLIC PN,CMP [CHEM] Stat INR,PT,PROTHROMBIN TIME [COAG] Stat PTT,PARTIAL THROMBOPLSTIN TIME [COAG] Stat TROPONIN I [CHEM] Stat 07/07/19 15:25 EKG 12 Lead [EKG Documentation Completion] [RC] STAT 07/07/19 15:30 EKG 12 Lead [EKG Documentation Completion] [RC] STAT Peripheral IV Care [RC] . DIRECTED Chest 1V Frontal [CR] Stat Sodium Chloride 0.9% [Saline Flush] 10 ml FLUSH ASDIRECTED PRN Peripheral IV Insertion Adult [OM.PC] Stat 07/07/19 15:45 Nitroglycerin/D5W [Nitroglycerin 25 MG/D5W 250 ML] 25 mg in 250 ml IV TITRATE - Assessment/Plan Last 24 Hours: My Active Orders 07/07/19 15:14 B-TYPE NATRIURETIC PEPTIDE,BNP [CHEM] Stat COMPREHENSIVE METABOLIC PN,CMP [CHEM] Stat INR,PT,PROTHROMBIN TIME [COAG] Stat PTT,PARTIAL THROMBOPLSTIN TIME [COAG] Stat TROPONIN I [CHEM] Stat 07/07/19 15:25 EKG 12 Lead [EKG Documentation Completion] [RC] STAT 07/07/19 15:30 EKG 12 Lead [EKG Documentation Completion] [RC] STAT Peripheral IV Care [RC] . DIRECTED Chest 1V Frontal [CR] Stat Sodium Chloride 0.9% [Saline Flush] 10 ml FLUSH ASDIRECTED PRN Peripheral IV Insertion Adult [OM.PC] Stat 07/07/19 15:45 Nitroglycerin/D5W [Nitroglycerin 25 MG/D5W 250 ML] 25 mg in 250 ml IV TITRATE
[2019-07-07] MEDS ORDERED: Sodium Chloride 0.9% 10 ML Syringe FLUSH PRN (15:30)
[2019-07-07] MEDS ORDERED: Heparin Sodium 5,000 Units/ML Vial IVPUSH ONE (15:31)
[2019-07-07] MEDS ORDERED: Aspirin 81 MG Tab.Chew PO ONE (15:31)
[2019-07-07] MEDS ORDERED: Clopidogrel 75 MG Tab PO ONE (15:31)
[2019-07-07] MEDS ORDERED: Aspirin 81 MG Tab.Chew ONE (15:32)
[2019-07-07] MEDS ORDERED: Heparin Sodium 5,000 Units/ML Vial ONE (15:33)
[2019-07-07] MEDS ORDERED: Heparin Sodium/0.45% NaCl 500 ML ONE (15:33)
[2019-07-07] MEDS ORDERED: Nitroglycerin/D5W 25 MG/250 ML BOTTLE ONE (15:34)
[2019-07-07] MEDS ORDERED: Nitroglycerin/D5W 25 MG/250 ML BOTTLE IV SCH (15:45)
--- NOTE | 2019-07-07 15:45 | CR ---
EXAMINATION: Chest 1V Frontal SEX: Female AGE: 73 years CLINICAL HISTORY: 73-year-old female emergency Department with chest pain. Comparison film 19 August 2018. INTERPRETATION: Upright AP portable chest 1. Increased cardiac size and generalized venous congestion with mild cephalization. 2. No new signs of alveolar edema or dependent pleural fluid accumulation since 19 August 2018. 3. No new lung mass, hilar lymphadenopathy or focal lobar pneumonia. 4. Chronic right lower lobe fibrosis or bronchiectasis. No atelectasis/collapse 5. No pneumothorax or free subdiaphragmatic air. CONCLUSION: Abnormal. Subtle cardiovascular decompensation (BNP? EKG?) No new lung mass or focal lobar consolidation since August 2018 exam.
[2019-07-07 15:52] LABS: ANION GAP 14.7
== END 2019-07-07 15:55 ==
LOC: DL.ED 14:55
DX: I21.19 ST elevation (STEMI) myocardial infarction involving other coronary artery of inferior wall (principal); J44.9 Chronic obstructive pulmonary disease, unspecified; E11.9 Type 2 diabetes mellitus without complications; E78.00 Pure hypercholesterolemia, unspecified; I10 Essential (primary) hypertension; Z88.8 Allergy status to other drugs, medicaments and biological substances; Z88.5 Allergy status to narcotic agent; Z79.899 Other long term (current) drug therapy; Z79.82 Long term (current) use of aspirin; Z79.4 Long term (current) use of insulin
CPT/HCPCS: 36415; 71045; 80053; 83880; 84484; 85025; 85610; 85730; 93005; 96374; 96375; 96376; 99285; A9270; J1644; J3490; 93010; 99284

== ENCOUNTER 2020-06-18 16:39 | Emergency (ER) | payer MEDICARE, MEDICAID, OTHER ==
[2020-06-18 16:57] VITALS: BP 119/52; PULSE 95
--- NOTE | 2020-06-18 17:10 | EDM.PDOC ---
ED HPI GENERAL MEDICAL PROBLEM - General Chief Complaint: Genitourinary Problem Stated Complaint: IN BY AMBULANCE Time Seen by Provider: 06/18/20 17:00 Source of Information: Reports: Patient History Limitations: Reports: No Limitations - History of Present Illness INITIAL COMMENTS - FREE TEXT/NARRATIVE: Patient comes emergency department today from home by ambulance with concerns of painful urination and flank pain. This patient was diagnosed with COVID about 1 week ago. Over the past 2 days she has complained of increased urinary frequency. Dysuria and flank pain. No fever no chills. No nausea no vomiting. No abdominal pain. Although she was recently diagnosed with COVID she has no shortness of breath cough or congestion. No weakness dizziness lightheadedness. No chest pain. No fatigue or malaise. No loss of taste or smell. She has had diarrhea 6-7 times for the past couple of days. She has been able to eat and drink appropriately. Generalized Pain Score (Numeric/FACES): 8 - Related Data Allergies Allergy/AdvReac Type Severity Reaction Status Date / Time glyburide Allergy Shortness Verified 06/18/20 16:59 of Breath insulin aspart Allergy Itching Verified 06/18/20 16:59 [From Novolog Mix 70-30] insulin aspart protamine Allergy Itching Verified 06/18/20 16:59 human [From Novolog Mix 70-30] nystatin Allergy Rash Verified 06/18/20 16:59 tramadol Allergy Shortness Verified 06/18/20 16:59 of Breath Home Meds: Home Meds Acetaminophen with Codeine [Tylenol with Codeine #3 Tablet] 1 tab PO Q4H PRN 09/05/15 [History] Albuterol [Proventil Neb Soln] 1 vial INH Q4H PRN 09/05/15 [History] Aspirin [Halfprin] 1 tab PO DAILY 09/05/15 [History] Polyvinyl Alcohol [Artificial Tears] 1 drop EYEBOTH QID PRN 09/05/15 [History] Pregabalin [Lyrica] 150 mg PO DAILY 09/05/15 [History] metFORMIN [Glucophage] 1 tab PO BIDMEALS 09/05/15 [History] Albuterol [Proair HFA] 2 puff INH Q4H PRN 01/19/18 [History] Famotidine 1 tab PO DAILY 01/19/18 [History] Insulin Aspart [NovoLOG] 20 units SQ TID 01/19/18 [History] Insulin Detemir [Levemir Flextouch] 45 units SQ BID 01/19/18 [History] Loratadine 1 tab PO DAILY 01/19/18 [History] Losartan [Cozaar] 1 tab PO DAILY 01/19/18 [History] Saxagliptin HCl [Onglyza] 1 tab PO DAILY 01/19/18 [History] atorvaSTATin [Lipitor] 1 tab PO BEDTIME 01/19/18 [History] Past Medical History HEENT History: Reports: Impaired Vision Cardiovascular History: Reports: High Cholesterol, Hypertension Other Cardiovascular History: PERIPHERAL EDEMA Respiratory History: Reports: COPD Gastrointestinal History: Reports: GERD, Other (See Below) Other Gastrointestinal History: PERSISTENT HEARTBURN Genitourinary History: Reports: Dialysis, Diabetic Nephropathy Other Genitourinary History: short term shunt in the neck for dialysis while in the hospital SLAG EXPANDER History: Reports: Other (See Below) Other SLAG EXPANDER History: YEAST INFECTIONS Neurological History: Reports: Neuropathy, Diabetic Endocrine/Metabolic History: Reports: Diabetes, Type II Immunologic History: Reports: Other (See Below) Other Immunologic History: MIGUEL POSITIVE ; PT STATES SHE COULD HAVE BEEN EXPOSED TO HIV OR AIDS WHEN SHE LIVED IN [place] IN THE PAST - TESTED NEGATIVE FOR HIV Dermatologic History: Reports: Other (See Below) Other Dermatologic History: SMALL RED RAISED AREA ON LEFT PALM SIZE OF QUARTER - SAYS IT WAS OPEN, BUT NOW IS CLOSED; PT STATES SHE HAS "DIABETIC SORES" ON HER LOWER EXTREMETIES AND BACK - NONE ARE OPEN AT THIS TIME - Past Surgical History HEENT Surgical History: Reports: Cataract Surgery Other HEENT Surgeries/Procedures: BILAT CATARACT EXTRACTION Female Surgical History: Reports: Section Musculoskeletal Surgical History: Reports: Other (See Below) Other Musculoskeletal Surgeries/Procedures:: both great toes have been amputated Social & Family History - Family History Family Medical History: Noncontributory - Tobacco Use Smoking Status *Q: Never Smoker Second Hand Smoke Exposure: No - Caffeine Use Caffeine Use: Reports: None - Recreational Drug Use Recreational Drug Use: No - Living Situation & Occupation Occupation: Retired ED ROS GENERAL - Review of Systems Review Of Systems: Comprehensive ROS is negative, except as noted in HPI. ED EXAM, RENAL/ - Physical Exam Exam: See Below Text/Narrative:: Patient clearly is in no respiratory distress nor is her respirations labored. Although upon arrival her oxygen saturation was 69% on room air. She was placed on 4 L of oxygen and still only maintains about 90 to 91%. Exam Limited By: No Limitations General Appearance: Alert, WD/WN, No Apparent Distress (She is in no respiratory distress. She is able to speak in full sentences without any labored breathing.) Ears: Normal External Exam Nose: Normal Inspection Throat/Mouth: Normal Inspection Head: Atraumatic Neck: Normal Inspection, Supple, Non-Tender Respiratory/Chest: No Respiratory Distress, No Accessory Muscle Use, Decreased Breath Sounds, Crackles (Crackles in the bilateral bases). No: Lungs Clear, Respiratory Distress, Accessory Muscle Use Cardiovascular: Normal Peripheral Pulses, Regular Rate, Rhythm GI/Abdominal: Normal Bowel Sounds, Non-Tender, No Organomegaly (Female) Exam: Deferred Rectal (Female) Exam: Deferred Back Exam: Full Range of Motion, CVA Tenderness (L). No: CVA Tenderness (R), Paraspinal Tenderness, Vertebral Tenderness Extremities: Normal Inspection, Normal Range of Motion, Non-Tender, No Pedal Edema, Normal Capillary Refill Neurological: Alert, Oriented, Normal Cognition, No Motor/Sensory Deficits Psychiatric: Normal Affect, Normal Mood Skin Exam: Warm, Dry, Intact, Normal Color Course - Vital Signs Last Recorded V/S: Last Vital Signs Temp 97.6 F 06/18/20 16:44 Pulse 95 06/18/20 16:44 Resp 18 06/18/20 16:44 BP 119/52 L 06/18/20 16:44 Pulse Ox 90 L 06/18/20 16:44 - Orders/Labs/Meds Orders: Active Orders 24 hr Category Date Time Status CULTURE URINE [RM] Urgent Lab 06/18/20 16:47 Received Peripheral IV Insertion Adult [OM.PC] Stat Oth 06/18/20 18:01 Ordered Labs: Laboratory Tests 06/18/20 06/18/20 06/18/20 Range/Units 16:47 17:32 17:32 WBC 10.2 H (5.0-10.0) 10^3/uL RBC 4.82 (4.2-5.4) 10^6/uL Hgb 13.5 D (12.0-16.0) g/dL Hct 40.0 (37.0-47.0) % MCV 83.0 D (80-100) fL MCH 28.0 (27.0-34.0) pg MCHC 33.8 (33.0-35.0) g/dL Plt Count 191 D (150-450) 10^3/uL Neut % (Auto) 89.0 H (42.2-75.2) % Lymph % (Auto) 6.0 L (20.5-50.1) % [place] % (Auto) 4.9 (2-8) % Eos % (Auto) 0.0 L (1.0-3.0) % Baso % (Auto) 0.1 (0.0-1.0) % Sodium 130 L (136-145) mmol/L Potassium 4.3 (3.5-5.1) mmol/L Chloride 96 L (98-107) mmol/L Carbon Dioxide 21 (21-32) mmol/L Anion Gap 17.3 H (7-13) mEq/L BUN 60 H (7-18) mg/dL Creatinine 4.35 H (0.55-1.02) mg/dL Est Cr Clr Drug Dosing 9.25 mL/min Estimated GFR (MDRD) 10 BUN/Creatinine Ratio 13.8 (No establ ref range) Glucose 171 H (74-99) mg/dL Lactic Acid (0.4-2.0) mmol/L Calcium 8.7 (8.5-10.1) mg/dL Total Bilirubin 0.2 (0.2-1.0) mg/dL AST 44 H (15-37) U/L ALT 20 (14-59) U/L Alkaline Phosphatase 117 H (46-116) U/L C-Reactive Protein 16.4 H (0.0-0.9) mg/dL B-Natriuretic Peptide 270 H (0-100) pg/ml Total Protein 7.4 (6.4-8.2) g/dL Albumin 1.9 L (3.4-5.0) g/dL Globulin 5.5 Albumin/Globulin Ratio 0.35 Urine Color Yellow (YELLOW) Urine Appearance Turbid (CLEAR) Urine pH 5.5 (5.0-9.0) Ur Specific Berry 1.025 (1.005-1.030) Urine Protein >=300 H (NEGATIVE) Urine Glucose (UA) 100 H (NEGATIVE) Urine Ketones Negative (NEGATIVE) Urine Occult Blood Moderate H (NEGATIVE) Urine Nitrite Negative (NEGATIVE) Urine Bilirubin Negative (NEGATIVE) Urine Urobilinogen 0.2 (0.2-1.0) mg/dL Ur Leukocyte Esterase Trace H (NEGATIVE) Urine RBC 30-40 H /HPF Urine WBC >100 H (0-5/HPF) /HPF Ur Epithelial Cells Many H (NOT SEEN) /HPF Amorphous Sediment Many H (NOT SEEN) /HPF Urine Bacteria Moderate H (0-FEW/HPF) /HPF Granular Casts (Auto) Few Fine Granular Casts Moderate H (NOT SEEN) /LPF Urine Mucus Moderate H (NOT SEEN) /LPF Urine Yeast Few H (NOT SEEN) /HPF 06/18/20 Range/Units 17:32 WBC (5.0-10.0) 10^3/uL RBC (4.2-5.4) 10^6/uL Hgb (12.0-16.0) g/dL Hct (37.0-47.0) % MCV (80-100) fL MCH (27.0-34.0) pg MCHC (33.0-35.0) g/dL Plt Count (150-450) 10^3/uL Neut % (Auto) (42.2-75.2) % Lymph % (Auto) (20.5-50.1) % [place] % (Auto) (2-8) % Eos % (Auto) (1.0-3.0) % Baso % (Auto) (0.0-1.0) % Sodium (136-145) mmol/L Potassium (3.5-5.1) mmol/L Chloride (98-107) mmol/L Carbon Dioxide (21-32) mmol/L Anion Gap (7-13) mEq/L BUN (7-18) mg/dL Creatinine (0.55-1.02) mg/dL Est Cr Clr Drug Dosing mL/min Estimated GFR (MDRD) BUN/Creatinine Ratio (No establ ref range) Glucose (74-99) mg/dL Lactic Acid 1.9 (0.4-2.0) mmol/L Calcium (8.5-10.1) mg/dL Total Bilirubin (0.2-1.0) mg/dL AST (15-37) U/L ALT (14-59) U/L Alkaline Phosphatase (46-116) U/L C-Reactive Protein (0.0-0.9) mg/dL B-Natriuretic Peptide (0-100) pg/ml Total Protein (6.4-8.2) g/dL Albumin (3.4-5.0) g/dL Globulin Albumin/Globulin Ratio Urine Color (YELLOW) Urine Appearance (CLEAR) Urine pH (5.0-9.0) Ur Specific Berry (1.005-1.030) Urine Protein (NEGATIVE) Urine Glucose (UA) (NEGATIVE) Urine Ketones (NEGATIVE) Urine Occult Blood (NEGATIVE) Urine Nitrite (NEGATIVE) Urine Bilirubin (NEGATIVE) Urine Urobilinogen (0.2-1.0) mg/dL Ur Leukocyte Esterase (NEGATIVE) Urine RBC /HPF Urine WBC (0-5/HPF) /HPF Ur Epithelial Cells (NOT SEEN) /HPF Amorphous Sediment (NOT SEEN) /HPF Urine Bacteria (0-FEW/HPF) /HPF Granular Casts (Auto) Fine Granular Casts (NOT SEEN) /LPF Urine Mucus (NOT SEEN) /LPF Urine Yeast (NOT SEEN) /HPF Meds: Medications Discontinued Medications Generic Name Dose Route Start Last Admin Trade Name Freq PRN Reason Stop Dose Admin Ceftriaxone Sodium 1 gm/ 50 mls @ 100 mls/hr 06/18/20 18:02 06/18/20 19:09 Sodium Chloride IV 06/18/20 18:31 Infused ONETIME ONE Infusion Lactated Ringer's 1,000 mls @ 150 mls/hr 06/18/20 18:15 06/18/20 18:31 Ringers, Lactated IV 400 mls/hr ASDIRECTED GREGG Infusion Lactated Ringer's 1,000 mls @ 999 mls/hr 06/18/20 18:27 06/18/20 18:31 Ringers, Lactated IV 06/18/20 19:27 Not Given .BOLUS ONE Sodium Chloride 10 ml 06/18/20 18:02 Saline Flush FLUSH ASDIRECTED PRN Keep Vein Open - Re-Assessments/Exams Free Text/Narrative Re-Assessment/Exam: 06/18/20 17:09 As stated previously the patient's oxygenation saturation upon arrival was 69%. She was placed on 4 L of oxygen nasal cannula with oxygen saturation in the 90 to 92%. Labs drawn. With elevation of the Creatinine to the mid 4s with her baseline about 2s. Clearly has a UTI and with the concerns of the flank pain mildly elevated WBC and CRP and the other system complaints this is a pyelonephritis. 1 liter LR bolus and then 150mls/hr Ceftriaxone 1 gram IVPB. I spoke with Dr. Stern with the concerns of ongoing covid as well as ORA and pyelo he refuses admission at this time. I called and spoke with the hospitalist automotive parts counterperson at [facility] in [place] as [place] is on diversion. HPI ER COURSE findings and concerns were relayed verbally over the phone. Questions answered and accepted the patient in transfer at this time. I discussed the plan of care with the patient. She was comfortable with this plan and her questions are answered. Departure - Departure Time of Disposition: 18:30 Disposition: DC/Tfer to [facility] Clinical Impression: COVID-19, Pyelonephritis, ORA (acute kidney injury), Hyponatremia - Discharge Information Forms: ED Department Discharge Sepsis Event Note (ED) - Evaluation Sepsis Screening Result: No Definite Risk - My Orders Last 24 Hours: My Active Orders 06/18/20 16:47 CULTURE URINE [RM] Urgent 06/18/20 18:01 Peripheral IV Insertion Adult [OM.PC] Stat - Assessment/Plan Last 24 Hours: My Active Orders 06/18/20 16:47 CULTURE URINE [RM] Urgent 06/18/20 18:01 Peripheral IV Insertion Adult [OM.PC] Stat
[2020-06-18] MEDS ORDERED: cefTRIAXone 1 GM in Sodium Chloride 0.9% 50 ML IV ONE (18:02)
[2020-06-18] MEDS ORDERED: Sodium Chloride 0.9% 10 ML Syringe FLUSH PRN (18:02)
--- NOTE | 2020-06-18 18:06 | CR ---
PROCEDURE INFORMATION: Exam: XR Chest, 1 View Exam date and time: 06/18/2020 5:26 PM Age: 74 years old Clinical indication: Other: Hypoxia, covid; Additional info: Hypoxia, dx covid 1 week ago. TECHNIQUE: Imaging protocol: XR of the chest Views: 1 view. COMPARISON: CT Chest wo Cont 11/07/2019 1:29 PM FINDINGS: Lungs: There is mild airspace or ground-glass density at the periphery of the right upper lobe and right lower lobe with prominent right lower lobe interstitial changes. The left lung is clear of any acute infiltrates. Pleural space: Unremarkable. No pleural effusion. No pneumothorax. Heart/Mediastinum: The mediastinal contour is normal. There is atherosclerotic calcification the aorta. There are medial sternotomy sutures. The cardiac structures are normal. Bones/joints: The skeletal structures and soft tissues show no evidence of fracture or other acute processes. IMPRESSION: 1. Right lung airspace and interstitial prominence. Cannot exclude acute on chronic process. 2. Median sternotomy.
[2020-06-18 18:08] LABS: ANION GAP 17.3 mEq/L (7-13)
[2020-06-18] MEDS ORDERED: Lactated Ringers 1,000 ML IV SCH (18:15)
[2020-06-18] MEDS ORDERED: Lactated Ringers 1,000 ML IV ONE (18:27)
== END 2020-06-18 19:30 ==
LOC: DL.ED 16:39
DX: N12 Tubulo-interstitial nephritis, not specified as acute or chronic (principal); N17.9 Acute kidney failure, unspecified; U07.1 COVID-19; E87.1 Hypo-osmolality and hyponatremia; I10 Essential (primary) hypertension; J44.9 Chronic obstructive pulmonary disease, unspecified; E11.21 Type 2 diabetes mellitus with diabetic nephropathy; E11.40 Type 2 diabetes mellitus with diabetic neuropathy, unspecified; K21.9 Gastro-esophageal reflux disease without esophagitis; Z88.3 Allergy status to other anti-infective agents; Z88.5 Allergy status to narcotic agent; Z88.8 Allergy status to other drugs, medicaments and biological substances; Z79.899 Other long term (current) drug therapy; Z79.82 Long term (current) use of aspirin; Z79.4 Long term (current) use of insulin
CPT/HCPCS: 36415; 71045; 80053; 81001; 83605; 83880; 85025; 86140; 87086; 96365; 99284; 99285; J0696; J7050; J7120